=== PATIENT | female | born 1975 | race Caucasian/White ===

== ENCOUNTER → 2017-07-08 | Outpatient (CLI) | payer OTHER, BC | END | disposition home or self-care (01) | LOC: C.RDSM 13:33 | PROVIDERS: ATTEND Orthopaedic Surgery Sports Medicine | DX: R52 Pain, unspecified (principal) ==

== ENCOUNTER → 2017-07-21 | Outpatient (CLI) | payer BC ==
--- NOTE | 2017-07-21 16:43 | MAMMOGRAPHY REPORT ---
BILATERAL DIGITAL SCREENING MAMMOGRAM TOMOSYNTHESIS WITH CAD: 07/21/2017 CLINICAL HISTORY: Routine screening. Patient has no complaints. TECHNIQUE: Breast tomosynthesis in addition to standard 2D mammography was performed. Current study was also evaluated with a Computer Aided Detection (CAD) system. COMPARISON: Comparison is made to exams dated: 07/18/2016 mammogram, 07/18/2015 mammogram, 02/17/2014 mamm ogram, and 02/15/2014 mammogram - [facility]. BREAST COMPOSITION: The tissue of both breasts is heterogeneously dense, which may obscure small mas ses. FINDINGS: The parenchymal pattern is unchanged. No developing mass, architectural distortion or clus ter of suspicious microcalcifications is seen in either breast. IMPRESSION: ACR BI-RADS CATEGORY 2: BENIGN There is no mammographic evidence of malignancy. A 1 year screening mammogram is recommended. The pa tient will receive written notification of the results. Approximately 10% of breast cancers are not detected with mammography. A negative mammographic report should not delay biopsy if a clinically suggestive mass is present. Malia Taylor M.D. ay/:07/21/2017 16:26:50 Manager Payroll: Kamryn Leavitt RT(R)(M)(BD), [facility] letter sent: Normal 1/2 BI-RADS Code: ACR BI-RADS Category 2: Benign
== END | disposition home or self-care (01) ==
LOC: C.MAMM 11:15
PROVIDERS: ATTEND Obstetrics & Gynecology
DX: Z12.31 Encounter for screening mammogram for malignant neoplasm of breast (principal)

== ENCOUNTER → 2017-07-22 | Outpatient (CLI) | payer OTHER, BC ==
[~2017-07-22] MED LIST: GADAVIST IV PRN
--- NOTE | 2017-07-22 12:18 | DIAGNOSTIC IMAGING REPORT ---
LOWER EXT NON JOINT COMBO CLINICAL HISTORY: MASS ON L FOOT TECHNIQUE: Multiaxial MRI acquisition COMPARISON STUDY: None FINDINGS: Signal characteristics of the osseous structures are unremarkable throughout. There is no bone marrow replacing process. Within the subcutaneous fat dorsal to the second metatarsal is a well-circumscribed 9 x 7 x 4 mm nodular density. This shows minimal, if any postcontrast enhancement. Diagnostic considerations include the possibility of lipoma versus fat process. Fibrous based lesion is felt to be unlikely. Signal characteristics of the soft tissue structures are otherwise unremarkable. All major muscular tendinous structures appear to be within normal limits. No additional nodular findings are present. There is again no abnormal bone marrow enhancement characteristics. IMPRESSION: 1. Subcutaneous nodule dorsal to the second metatarsal measuring 9 x 7 x 4 mm. 2. Signal characteristics primarily are fat in nature, with no significant and/or only a trace component of postcontrast enhancement. 3. Diagnostic considerations include lipoma, fat necrosis, versus the less likely possibility of a fibrous lesion. 4. A neoplastic process is felt to be unlikely given the appearance as discussed as well as absence of significant postcontrast enhancement The above report was generated using voice recognition software. It may contain grammatical, syntax or spelling errors. Electronically signed by: Eloy Colón M.D. 07/22/2017 12:17 PM Dictated Date/Time: 07/22/2017 12:10 PM
== END | disposition home or self-care (01) ==
LOC: C.MRI 10:46
PROVIDERS: ATTEND Family Medicine
DX: R22.42 Localized swelling, mass and lump, left lower limb (principal)

== ENCOUNTER → 2018-03-01 | Outpatient (CLI) | payer BC | END | disposition home or self-care (01) | LOC: C.LAB1850 15:31 | PROVIDERS: ATTEND Obstetrics & Gynecology | DX: R61 Generalized hyperhidrosis (principal) ==